=== PATIENT | female | born 1945 | race Caucasian/White ===

== ENCOUNTER 2021-08-18 21:35 | Inpatient (IN) ==
[2021-08-18] MEDS ORDERED: Nitroglycerin 1,000 MCG/5 ML VIAL IV ONE (21:52)
[2021-08-18] MEDS ORDERED: Heparin 1,000 UNITS/500 mL 500 ML ONE (21:52)
[2021-08-18] MEDS ORDERED: ISOVUE-370 200 ML INFUS..BTL ONE (21:52)
[2021-08-18] MEDS ORDERED: *HR* Heparin 10,000 UNIT/10 ML VIAL ONE (21:52)
[2021-08-18] MEDS ORDERED: 0.9 % Sodium Chloride 2,000 ML ONE (21:52)
[2021-08-18] MEDS ORDERED: Tirofiban 12.5 MG/250ML 12.5 MG/250 ML BAG ONE (21:53)
[2021-08-18] MEDS ORDERED: *HR* Midazolam HCl 2 MG/2 ML VIAL ONE (23:14)
[2021-08-18] MEDS ORDERED: *HR* FentaNYL (PF) 100 MCG/2 ML VIAL ONE (23:14)
[2021-08-19] MEDS ORDERED: Perflutren Lipid Microsphere 1.3 ML in 0.9 % Sodium Chloride 8.7 ML IVP PRN (00:21)
[2021-08-19] MEDS ORDERED: Tirofiban 12.5 MG/250ML 12.5 MG/250 ML BAG IVC SCH (00:30)
[2021-08-19 05:33] LABS: Basophils # 0.1 K/mcL (0.0-0.2); Basophils % 0.9 %; Eosinophils # 0.4 K/mcL (0.0-0.6); Eosinophils % 3.4 %; Hematocrit 47.6 % (35.3-44.9); Hemoglobin 15.8 g/dL (11.5-15.4); Immature Granulocytes % 0.3 % (0-4); Lymphocytes % 19.1 %; Mean Corpuscular HGB Conc 33.2 g/dL (31.6-35.5); Mean Corpuscular Hemoglobin 29.9 pg (28.0-33.3); Mean Corpuscular Volume 90.2 fL (83.0-100.0); Mean Platelet Volume 10.5 fL (9.4-12.4); Monocytes # 0.7 K/mcL (0.0-1.3); Monocytes % 6.9 %; Neutrophils # 7.2 K/mcL (1.6-8.9); Platelet Count 278 K/mcL (140-400); Red Blood Count 5.28 M/mcL (3.82-4.97); Red Cell Distribution Width 13.3 % (11.5-14.5); Segmented Neutrophils % 69.4 %; White Blood Count 10.4 K/mcL (4.3-11.1)
[2021-08-19 05:52] LABS: BUN/Creatinine Ratio 18 (6-26); Blood Urea Nitrogen 16 mg/dL (8-23); Calcium 9.6 mg/dL (8.6-10.3); Carbon Dioxide 30 mEq/L (23-29); Chloride 101 mEq/L (98-107); Glucose 94 mg/dL (70-105); Osmolality,Calculated 285 (280-300); Potassium 4.2 mEq/L (3.5-5.1); Sodium 137 mEq/L (136-145); eGFR For African Americans > 60 (> 60); eGFR For Non-African Americans > 60 (> 60)
[2021-08-19] MEDS ORDERED: *HR* Ticagrelor 90 MG TABLET PO SCH (09:00)
[2021-08-19] MEDS: Aspirin Enteric Coated 81 MG Tablet PO SCH (09:32)
[2021-08-19] MEDS: Metoprolol XL (24 HR) Succ 50 MG TAB.ER.24H PO SCH (09:32)
[2021-08-19] MEDS: lisinopriL 10 MG TABLET PO SCH (10:03)
[2021-08-19] MEDS: Ondansetron 4 MG/2 ML VIAL IVP PRN ×2 (10:26→21:34)
[2021-08-19] MEDS ORDERED: *HR* Heparin 5,000 UNIT/ML VIAL IVP ONE (12:09)
[2021-08-19] MEDS ORDERED: *HR* Heparin 5,000 UNIT/ML VIAL IVP PRN (12:09)
[2021-08-19] MEDS: Heparin 25,000UNIT/250ML 1/2NS 25,000 UNIT/250 ML IV.SOLN IVC SCH (13:06)
[2021-08-19 14:20] LABS: Hematocrit 46.3 % (35.3-44.9); Hemoglobin 15.5 g/dL (11.5-15.4); Mean Corpuscular HGB Conc 33.5 g/dL (31.6-35.5); Mean Corpuscular Hemoglobin 30.1 pg (28.0-33.3); Mean Corpuscular Volume 89.9 fL (83.0-100.0); Mean Platelet Volume 10.7 fL (9.4-12.4); Platelet Count 270 K/mcL (140-400); Red Blood Count 5.15 M/mcL (3.82-4.97); Red Cell Distribution Width 13.5 % (11.5-14.5); White Blood Count 13.3 K/mcL (4.3-11.1)
[2021-08-19 14:29] LABS: INR 1.1; Prothrombin Time 11.9 Seconds (9.4-12.1)
[2021-08-19 14:31] LABS: Heparin anti-factor XA UFH 1.11 IU/mL (0.30-0.70)
[2021-08-19] MEDS ORDERED: Acetaminophen 325 MG TABLET PO PRN (20:51)
[2021-08-19] MEDS: *HR* Heparin 5,000 UNIT/ML VIAL IVP PRN (21:35)
[2021-08-20 04:41] LABS: Basophils # 0.1 K/mcL (0.0-0.2); Basophils % 0.7 %; Eosinophils # 0.3 K/mcL (0.0-0.6); Eosinophils % 2.7 %; Hematocrit 43.7 % (35.3-44.9); Hemoglobin 14.9 g/dL (11.5-15.4); Immature Granulocytes % 0.5 % (0-4); Lymphocytes # 1.4 K/mcL (0.6-4.6); Lymphocytes % 12.1 %; Mean Corpuscular HGB Conc 34.1 g/dL (31.6-35.5); Mean Corpuscular Hemoglobin 30.5 pg (28.0-33.3); Mean Corpuscular Volume 89.5 fL (83.0-100.0); Mean Platelet Volume 10.7 fL (9.4-12.4); Monocytes # 0.9 K/mcL (0.0-1.3); Monocytes % 7.6 %; Platelet Count 264 K/mcL (140-400); Red Blood Count 4.88 M/mcL (3.82-4.97); Red Cell Distribution Width 13.5 % (11.5-14.5); Segmented Neutrophils % 76.4 %; White Blood Count 11.8 K/mcL (4.3-11.1)
[2021-08-20 04:59] LABS: BUN/Creatinine Ratio 20 (6-26); Blood Urea Nitrogen 17 mg/dL (8-23); Calcium 8.8 mg/dL (8.6-10.3); Carbon Dioxide 27 mEq/L (23-29); Chloride 103 mEq/L (98-107); Chol/HDL Ratio 3.4 (0-4.9); Cholesterol 178 mg/dL (< 200); Glucose 114 mg/dL (70-105); HDL Cholesterol 53 mg/dL (40-59); LDL Cholesterol,Calculated 109 mg/dL (< 100); Osmolality,Calculated 286 (280-300); Potassium 3.7 mEq/L (3.5-5.1); Sodium 137 mEq/L (136-145); Triglycerides 81 mg/dL (< 150); eGFR For African Americans > 60 (> 60); eGFR For Non-African Americans > 60 (> 60)
[2021-08-20] MEDS: Aspirin Enteric Coated 81 MG Tablet PO SCH (08:45)
[2021-08-20] MEDS: lisinopriL 10 MG TABLET PO SCH (08:45)
[2021-08-20] MEDS: Metoprolol XL (24 HR) Succ 50 MG TAB.ER.24H PO SCH (08:45)
[2021-08-20] MEDS ORDERED: Morphine Sulfate 2 MG/ML SYRINGE IVP ONE (09:03)
[2021-08-20] MEDS: *HR* Heparin 5,000 UNIT/ML VIAL IVP PRN (16:22)
[2021-08-20 16:26] LABS: Estimated Average Glucose 120 mg/dl; Hemoglobin A1C 5.8 %
[2021-08-20] MEDS: Morphine Sulfate 2 MG/ML SYRINGE IVP PRN (17:38)
[2021-08-21] MEDS: Morphine Sulfate 2 MG/ML SYRINGE IVP PRN (00:03)
[2021-08-21] MEDS: Heparin 25,000UNIT/250ML 1/2NS 25,000 UNIT/250 ML IV.SOLN IVC SCH ×2 (01:24→15:41)
[2021-08-21 04:55] LABS: Basophils # 0.1 K/mcL (0.0-0.2); Basophils % 0.9 %; Eosinophils # 0.4 K/mcL (0.0-0.6); Hematocrit 39.8 % (35.3-44.9); Immature Granulocytes % 0.3 % (0-4); Lymphocytes % 21.3 %; Mean Corpuscular HGB Conc 32.4 g/dL (31.6-35.5); Mean Corpuscular Hemoglobin 29.6 pg (28.0-33.3); Mean Corpuscular Volume 91.3 fL (83.0-100.0); Mean Platelet Volume 11.2 fL (9.4-12.4); Monocytes % 11.2 %; Neutrophils # 5.8 K/mcL (1.6-8.9); Platelet Count 213 K/mcL (140-400); Red Blood Count 4.36 M/mcL (3.82-4.97); Red Cell Distribution Width 13.5 % (11.5-14.5); Segmented Neutrophils % 62.3 %; White Blood Count 9.3 K/mcL (4.3-11.1)
[2021-08-21 04:58] LABS: Hemoglobin 12.9 g/dL (11.5-15.4)
[2021-08-21 05:11] LABS: BUN/Creatinine Ratio 24 (6-26); Blood Urea Nitrogen 18 mg/dL (8-23); Calcium 8.6 mg/dL (8.6-10.3); Carbon Dioxide 28 mEq/L (23-29); Chloride 102 mEq/L (98-107); Glucose 107 mg/dL (70-105); Osmolality,Calculated 286 (280-300); Potassium 3.9 mEq/L (3.5-5.1); Sodium 137 mEq/L (136-145); eGFR For African Americans > 60 (> 60); eGFR For Non-African Americans > 60 (> 60)
[2021-08-21] MEDS: Metoprolol XL (24 HR) Succ 50 MG TAB.ER.24H PO SCH (09:20)
[2021-08-21] MEDS: lisinopriL 10 MG TABLET PO SCH (09:20)
[2021-08-21] MEDS: Aspirin Enteric Coated 81 MG Tablet PO SCH (09:20)
[2021-08-21] MEDS: *HR* OxyCODONE/APAP 5/325 TABLET PO PRN ×3 (10:30→19:55)
[2021-08-21] MEDS: *HR* Ticagrelor 90 MG TABLET PO SCH (19:56)
[2021-08-22 05:46] LABS: Basophils # 0.1 K/mcL (0.0-0.2); Basophils % 0.6 %; Eosinophils # 0.5 K/mcL (0.0-0.6); Eosinophils % 5.7 %; Hematocrit 41.2 % (35.3-44.9); Hemoglobin 13.7 g/dL (11.5-15.4); Immature Granulocytes % 0.6 % (0-4); Lymphocytes # 1.4 K/mcL (0.6-4.6); Lymphocytes % 16.4 %; Mean Corpuscular HGB Conc 33.3 g/dL (31.6-35.5); Mean Corpuscular Hemoglobin 30.5 pg (28.0-33.3); Mean Corpuscular Volume 91.8 fL (83.0-100.0); Mean Platelet Volume 10.7 fL (9.4-12.4); Monocytes # 0.9 K/mcL (0.0-1.3); Monocytes % 10.6 %; Neutrophils # 5.5 K/mcL (1.6-8.9); Platelet Count 225 K/mcL (140-400); Red Blood Count 4.49 M/mcL (3.82-4.97); Red Cell Distribution Width 13.3 % (11.5-14.5); Segmented Neutrophils % 66.1 %; White Blood Count 8.4 K/mcL (4.3-11.1)
[2021-08-22 06:08] LABS: BUN/Creatinine Ratio 30 (6-26); Blood Urea Nitrogen 20 mg/dL (8-23); Calcium 8.9 mg/dL (8.6-10.3); Carbon Dioxide 29 mEq/L (23-29); Chloride 102 mEq/L (98-107); Glucose 95 mg/dL (70-105); Osmolality,Calculated 286 (280-300); Potassium 4.1 mEq/L (3.5-5.1); Sodium 137 mEq/L (136-145); eGFR For African Americans > 60 (> 60); eGFR For Non-African Americans > 60 (> 60)
[2021-08-22] MEDS: *HR* OxyCODONE/APAP 5/325 TABLET PO PRN (07:13)
[2021-08-22] MEDS: Aspirin Enteric Coated 81 MG Tablet PO SCH (07:13)
[2021-08-22] MEDS: *HR* Ticagrelor 90 MG TABLET PO SCH ×2 (07:13→20:39)
[2021-08-22] MEDS: lisinopriL 10 MG TABLET PO SCH (07:14)
[2021-08-22] MEDS: Metoprolol XL (24 HR) Succ 50 MG TAB.ER.24H PO SCH (07:14)
[2021-08-22] MEDS ORDERED: Heparin 25,000 UNIT/250 ML 25,000 UNIT/250 ML IV.SOLN IVC SCH (12:00)
[2021-08-22] MEDS: Ondansetron 4 MG/2 ML VIAL IVP PRN (23:20)
[2021-08-22] MEDS: Morphine Sulfate 2 MG/ML SYRINGE IVP PRN (23:20)
[2021-08-23 04:46] LABS: Basophils # 0.1 K/mcL (0.0-0.2); Basophils % 0.7 %; Eosinophils # 0.5 K/mcL (0.0-0.6); Eosinophils % 6.1 %; Immature Granulocytes % 0.8 % (0-4); Lymphocytes # 1.6 K/mcL (0.6-4.6); Lymphocytes % 17.7 %; Mean Corpuscular HGB Conc 33.3 g/dL (31.6-35.5); Mean Corpuscular Hemoglobin 30.5 pg (28.0-33.3); Mean Corpuscular Volume 91.5 fL (83.0-100.0); Mean Platelet Volume 10.6 fL (9.4-12.4); Monocytes # 0.8 K/mcL (0.0-1.3); Neutrophils # 5.8 K/mcL (1.6-8.9); Platelet Count 292 K/mcL (140-400); Red Blood Count 4.59 M/mcL (3.82-4.97); Red Cell Distribution Width 13.4 % (11.5-14.5); Segmented Neutrophils % 65.7 %; White Blood Count 8.8 K/mcL (4.3-11.1)
[2021-08-23 04:58] LABS: BUN/Creatinine Ratio 26 (6-26); Blood Urea Nitrogen 21 mg/dL (8-23); Calcium 9.1 mg/dL (8.6-10.3); Carbon Dioxide 29 mEq/L (23-29); Chloride 101 mEq/L (98-107); Glucose 99 mg/dL (70-105); Osmolality,Calculated 285 (280-300); Potassium 4.2 mEq/L (3.5-5.1); Sodium 136 mEq/L (136-145); eGFR For African Americans > 60 (> 60); eGFR For Non-African Americans > 60 (> 60)
[2021-08-23] MEDS: *HR* Heparin 5,000 UNIT/ML VIAL IVP PRN (05:37)
[2021-08-23] MEDS: Morphine Sulfate 2 MG/ML SYRINGE IVP PRN (06:04)
[2021-08-23] MEDS: Aspirin Enteric Coated 81 MG Tablet PO SCH (07:13)
[2021-08-23] MEDS: Metoprolol XL (24 HR) Succ 50 MG TAB.ER.24H PO SCH (07:13)
[2021-08-23] MEDS: lisinopriL 10 MG TABLET PO SCH (07:13)
[2021-08-23] MEDS: *HR* Ticagrelor 90 MG TABLET PO SCH ×2 (07:14→20:48)
[2021-08-23] MEDS ORDERED: lisinopriL 10 MG TABLET PO ONE (11:53)
[2021-08-23] MEDS ORDERED: Perflutren Lipid Microsphere 1.3 ML in 0.9 % Sodium Chloride 8.7 ML IVP PRN (12:05)
[2021-08-23] MEDS: Isosorbide MONOnitrate (24 HR) 30 MG TAB.ER.24H PO SCH (12:21)
[2021-08-23] MEDS: *HR* OxyCODONE/APAP 5/325 TABLET PO PRN (20:48)
[2021-08-23] MEDS: *HR* Heparin 5,000 UNIT/ML VIAL SQ SCH (20:49)
[2021-08-24] MEDS: Ondansetron 4 MG/2 ML VIAL IVP PRN ×2 (01:28→09:29)
[2021-08-24] MEDS: *HR* Heparin 5,000 UNIT/ML VIAL SQ SCH ×2 (05:51→16:44)
[2021-08-24] MEDS: lisinopriL 10 MG TABLET PO SCH (07:43)
[2021-08-24] MEDS: Aspirin Enteric Coated 81 MG Tablet PO SCH (07:43)
[2021-08-24] MEDS: Isosorbide MONOnitrate (24 HR) 30 MG TAB.ER.24H PO SCH (07:43)
[2021-08-24] MEDS: *HR* Ticagrelor 90 MG TABLET PO SCH ×2 (07:43→19:42)
[2021-08-24] MEDS: Metoprolol XL (24 HR) Succ 50 MG TAB.ER.24H PO SCH (07:43)
[2021-08-24 09:09] LABS: Basophils # 0.1 K/mcL (0.0-0.2); Basophils % 0.7 %; Eosinophils # 0.5 K/mcL (0.0-0.6); Hematocrit 44.7 % (35.3-44.9); Hemoglobin 14.9 g/dL (11.5-15.4); Immature Granulocytes % 0.5 % (0-4); Lymphocytes # 1.6 K/mcL (0.6-4.6); Lymphocytes % 18.1 %; Mean Corpuscular HGB Conc 33.3 g/dL (31.6-35.5); Mean Corpuscular Hemoglobin 30.5 pg (28.0-33.3); Mean Corpuscular Volume 91.4 fL (83.0-100.0); Mean Platelet Volume 10.5 fL (9.4-12.4); Monocytes # 0.8 K/mcL (0.0-1.3); Monocytes % 9.4 %; Neutrophils # 5.7 K/mcL (1.6-8.9); Platelet Count 319 K/mcL (140-400); Red Blood Count 4.89 M/mcL (3.82-4.97); Red Cell Distribution Width 13.6 % (11.5-14.5); Segmented Neutrophils % 65.3 %; White Blood Count 8.7 K/mcL (4.3-11.1)
[2021-08-24 09:24] LABS: BUN/Creatinine Ratio 36 (6-26); Blood Urea Nitrogen 26 mg/dL (8-23); Calcium 9.2 mg/dL (8.6-10.3); Carbon Dioxide 26 mEq/L (23-29); Chloride 104 mEq/L (98-107); Glucose 131 mg/dL (70-105); Osmolality,Calculated 291 (280-300); Potassium 4.2 mEq/L (3.5-5.1); Sodium 137 mEq/L (136-145); eGFR For African Americans > 60 (> 60); eGFR For Non-African Americans > 60 (> 60)
[2021-08-24] MEDS: *HR* OxyCODONE/APAP 5/325 TABLET PO PRN (11:15)
[2021-08-24] MEDS: Morphine Sulfate 2 MG/ML SYRINGE IVP PRN ×2 (13:46→19:44)
[2021-08-24] MEDS ORDERED: Isosorbide MONOnitrate (24 HR) 30 MG TAB.ER.24H PO ONE (15:35)
[2021-08-25] MEDS: *HR* Heparin 5,000 UNIT/ML VIAL SQ SCH ×2 (06:59→17:28)
[2021-08-25] MEDS: Metoprolol XL (24 HR) Succ 50 MG TAB.ER.24H PO SCH (07:28)
[2021-08-25] MEDS: *HR* Ticagrelor 90 MG TABLET PO SCH ×2 (07:28→20:37)
[2021-08-25] MEDS: Morphine Sulfate 2 MG/ML SYRINGE IVP PRN ×2 (07:29→13:36)
[2021-08-25] MEDS: Aspirin Enteric Coated 81 MG Tablet PO SCH (07:29)
[2021-08-25] MEDS: lisinopriL 10 MG TABLET PO SCH (07:29)
[2021-08-25] MEDS: Isosorbide MONOnitrate (24 HR) 30 MG TAB.ER.24H PO SCH (07:37)
[2021-08-26] MEDS: Morphine Sulfate 2 MG/ML SYRINGE IVP PRN (00:08)
[2021-08-26 01:47] LABS: Basophils # 0.1 K/mcL (0.0-0.2); Basophils % 0.8 %; Eosinophils # 0.6 K/mcL (0.0-0.6); Eosinophils % 6.9 %; Hematocrit 39.3 % (35.3-44.9); Immature Granulocytes % 0.8 % (0-4); Lymphocytes # 1.9 K/mcL (0.6-4.6); Lymphocytes % 22.2 %; Mean Corpuscular HGB Conc 33.3 g/dL (31.6-35.5); Mean Corpuscular Hemoglobin 30.8 pg (28.0-33.3); Mean Corpuscular Volume 92.3 fL (83.0-100.0); Mean Platelet Volume 10.5 fL (9.4-12.4); Monocytes # 0.8 K/mcL (0.0-1.3); Monocytes % 9.2 %; Neutrophils # 5.1 K/mcL (1.6-8.9); Platelet Count 289 K/mcL (140-400); Red Blood Count 4.26 M/mcL (3.82-4.97); Red Cell Distribution Width 13.5 % (11.5-14.5); Segmented Neutrophils % 60.1 %; White Blood Count 8.6 K/mcL (4.3-11.1)
[2021-08-26 01:48] LABS: Hemoglobin 13.1 g/dL (11.5-15.4)
[2021-08-26 01:56] LABS: Prothrombin Time 10.9 Seconds (9.4-12.1)
[2021-08-26 02:04] LABS: BUN/Creatinine Ratio 33 (6-26); Blood Urea Nitrogen 28 mg/dL (8-23); Calcium 8.8 mg/dL (8.6-10.3); Carbon Dioxide 27 mEq/L (23-29); Chloride 103 mEq/L (98-107); Glucose 117 mg/dL (70-105); Osmolality,Calculated 295 (280-300); Potassium 4.3 mEq/L (3.5-5.1); Sodium 139 mEq/L (136-145); eGFR For African Americans > 60 (> 60); eGFR For Non-African Americans > 60 (> 60)
[2021-08-26] MEDS: *HR* Heparin 5,000 UNIT/ML VIAL SQ SCH (06:31)
[2021-08-26] MEDS: Metoprolol XL (24 HR) Succ 50 MG TAB.ER.24H PO SCH (07:24)
[2021-08-26] MEDS: lisinopriL 10 MG TABLET PO SCH (07:24)
[2021-08-26] MEDS: Aspirin Enteric Coated 81 MG Tablet PO SCH (07:24)
[2021-08-26] MEDS: *HR* Ticagrelor 90 MG TABLET PO SCH (07:24)
[2021-08-26] MEDS: Isosorbide MONOnitrate (24 HR) 30 MG TAB.ER.24H PO SCH (07:24)
[2021-08-26 11:50] VITALS: BP 126/78; PULSE 67; TEMP 98.2; O2SAT 97
[2021-08-26] MEDS ORDERED: Heparin 1,000 UNITS/500 mL 0 ML ONE (13:44)
[2021-08-26] MEDS ORDERED: ISOVUE-370 200 ML INFUS..BTL ONE (13:44)
[2021-08-26] MEDS ORDERED: *HR* Heparin 10,000 UNIT/10 ML VIAL ONE (13:44)
[2021-08-26] MEDS ORDERED: Nitroglycerin 1,000 MCG/5 ML VIAL IV ONE (13:45)
== END 2021-08-26 16:25 | disposition left against medical advice (07) | DRG 251 ==
LOC: ICNU 08-19 00:58 → 2NNU 08-19 18:05
PROVIDERS: ADMIT Internal Medicine Cardiovascular Disease; ATTEND Internal Medicine Cardiovascular Disease